=== PATIENT | male | born 1955 | race Caucasian/White ===

== ENCOUNTER 2017-06-26 09:41 | Day surgery (SDC) | payer BC, OTHER ==
[2017-06-24 14:58] VITALS: BMI 32.5
[~2017-06-26 09:41] MED LIST: LACTATED RINGERS 1,000 ML IV SCH
[2017-06-26 09:57] VITALS: TEMP 97.9
[2017-06-26] MEDS ORDERED: LIDOCAINE 1% 20 ML VIAL (10MG/ML) FOR IV START INTRADERMA ONE (10:14)
[2017-06-26] MEDS ORDERED: PROPOFOL 10 MG/ML 20 ML VIAL IV ONE (10:46)
[2017-06-26] MEDS ORDERED: LIDOCAINE 1% INJ 10MG/ML (20 ML MDV) ONE (10:46)
[2017-06-26 11:44] VITALS: RESP 18
--- NOTE | 2017-06-26 11:51 | P.PCN ---
Date of Procedure: 06/26/17 Procedure(s) Performed: Procedures: 1. Esophagogastroduodenoscopy and biopsy. 2. Total colonoscopy. Preoperative diagnosis: Chronic reflux and screening for colon neoplasia. Postoperative diagnosis: 1. Sliding hiatal hernia with no obvious esophagitis or strictures. Short segment of Sun's esophagus. Mild antral gastritis. Colon exam essentially within normal limits. Multiple biopsies obtained from the duodenum, antrum and esophagus. Preparation: HalfLytely prep. Sedation: Was provided by anesthesia. Brief clinical history: The patient is a 62-year-old male who is referred for this evaluation because of chronic reflux and for screening for colon neoplasia. His last colonoscopy was around 10 or 11 years ago. The patient has chronic reflux and has been on PPI for the last year or so but was on antacids and other [id number] medications for years before that. No dysphagia or other alarm symptoms. No and anemia. This evaluation is to assess for, complicated reflux disease, neoplasia or other pathology. Procedure: With the patient on his left lateral decubitus position and after informed consent and adequate sedation, I passed the Olympus-GIF 160 video upper endoscope through the cricopharyngeus down the esophagus. GE junction was around 40 cm from the incisors and there was a small sliding hiatal hernia. The esophagus did not show any obvious erosions, ulcers or strictures. There was a short segment of Sun's esophagus proximal to a small hiatal hernia. The endoscope was then passed into the stomach which was insufflated with air and inspected in detail including the retroflex view in the cardia. There was some mottling and erythema in the antrum but no ulcers or erosions. Pyloric channel, duodenal bulb, post bulbar area and descending duodenum appeared within normal limits. I obtained biopsies from the duodenum, antrum and esophagus as well as from the Sun's segment then the endoscope was withdrawn and I proceeded to do colonoscopy. Perianal area did not show any fissures or fistulas. There were no masses felt on digital rectal examination. The Olympus CFQ 160L video colonoscope was then inserted in the rectum in the usual fashion and advanced to the cecum. The mucosa appeared healthy. No polyps or tumors were seen. I retroflexed the endoscope in the rectum before the endoscope was withdrawn. The patient tolerated the procedure well. Plan: The patient was reassured. Will await biopsy results. Discussed dietary measures. He will follow up with you as planned and I will plan to repeat his upper endoscopy in 2-3 years. Screening colonoscopy in 10 years.
[2017-06-26 12:01] VITALS: BP 121/78; PULSE 57
== END 2017-06-26 12:43 | disposition home or self-care (01) ==
LOC: ORWHC2ENDO 09:41
DX: Z12.11 Encounter for screening for malignant neoplasm of colon (principal); K29.50 Unspecified chronic gastritis without bleeding; K21.0 Gastro-esophageal reflux disease with esophagitis; K22.70 Barrett's esophagus without dysplasia; K44.9 Diaphragmatic hernia without obstruction or gangrene; I10 Essential (primary) hypertension; Z79.82 Long term (current) use of aspirin; Z79.899 Other long term (current) drug therapy
CPT/HCPCS: 88305; 88342; 43239; J2001; J2704; G0121

== ENCOUNTER → 2024-08-03 | Outpatient (CLI) | payer MEDICARE, OTHER ==
--- NOTE | 2024-08-11 05:43 | MR ---
EXAMINATION TYPE: MR knee LT wo con DATE OF EXAM: 08/03/2024 COMPARISON: Outside left knee x-rays July 30, 2024 HISTORY: Left knee pain for 2 weeks due to turning to walk down baker, history of meniscus surgery. TECHNIQUE: Multiplanar, multisequence images of the knee is performed without IV contrast. FINDINGS: MEDIAL MENISCUS: Obliquely oriented signal posterior horn extends to the inferior articular surface. LATERAL MENISCUS: Increased of horizontal signal in the anterior and posterior horns. Abnormal signal posterior horn extends into the central body and likely abuts the articular surface. CRUCIATE LIGAMENTS: The anterior and posterior cruciate ligaments are intact. Increased signal in the anterior cruciate ligament is present. COLLATERAL LIGAMENTS: The medial collateral ligament and lateral collateral ligament complex are inta ct. Mildly increased signal involving deep fibers of the medial collateral ligament. Some adjacent fl uid at level of the lateral collateral ligament complex EXTENSOR MECHANISM: Visualized quadriceps and patellar tendons are intact. Some increased signal dist al quadriceps tendon and more prominently involving the proximal patellar tendon. EFFUSION: Large size suprapatellar joint effusion. POPLITEAL CYST: Lobulated septated moderate-sized popliteal/mccrary cyst measuring 6.1 cm long axis sag ittal image 28 with ill-defined fluid extending inferiorly. TRICOMPARTMENT SPACES: Moderate to severe narrowing and spurring patellofemoral and medial tibiofemor al compartments. Moderate to severe spurring lateral tibial femoral compartment with moderate narrowi ng. CARTILAGE: Chondromalacia patella with areas of full-thickness cartilaginous loss along the posterior patellar pole. Significant cartilaginous loss medial tibiofemoral compartment with areas of full-thi ckness loss noted. BONE MARROW SIGNAL: Areas of heterogeneous increased T2 signal in the posterior patellar pole are pre sent. Heterogeneous areas of diminished T1 and increased T2 signal in the distal femur and proximal t ibia and greatest involving the medial tibiofemoral compartment. OTHER: No additional significant abnormality is appreciated. IMPRESSION: 1. Fairly advanced degenerative changes in the left knee are present as detailed above. 2. Large-size suprapatellar joint effusion. 3. Moderate-size leaking septated popliteal cyst. 4. Oblique full-thickness tear posterior horn of medial meniscus. 5. At least intrasubstance suspected full-thickness tear posterior horn lateral meniscus. 6. Intrasubstance tear anterior horn lateral meniscus. 7. Partial tearing of the ACL. 8. Tendinosis of the MCL. 9. Tendinosis of the distal quadriceps tendon and proximal articulation of the patellar tendon. 10. Mild LCL sprain injury. [facility], , 08/11/2024 5:41 AM
== END | disposition home or self-care (01) ==
LOC: RADMRIMAIN 20:15
PROVIDERS: ATTEND Orthopaedic Surgery
DX: S83.242A Other tear of medial meniscus, current injury, left knee, initial encounter (principal); S83.282A Other tear of lateral meniscus, current injury, left knee, initial encounter; M17.12 Unilateral primary osteoarthritis, left knee; M71.22 Synovial cyst of popliteal space [Baker], left knee; M22.42 Chondromalacia patellae, left knee; X58.XXXA Exposure to other specified factors, initial encounter

== ENCOUNTER 2024-12-23 08:27 | Day surgery (SDC) | payer MEDICARE, OTHER ==
[2024-12-21 09:31] VITALS: BMI 34.3
--- NOTE | 2024-12-22 23:15 | HP ---
HISTORY AND PHYSICAL DATE OF SURGERY: 12/23/2024. HISTORY OF PRESENT ILLNESS: Matt Barron is a 69-year-old gentleman seen with progressive left knee pain. We discussed options regarding treatment. He elected to proceed with left knee arthroscopy. Consent was obtained. PAST MEDICAL HISTORY: Hypertension, atrial fibrillation, gastroesophageal reflux disease. SURGICAL HISTORY: Ablation. DAILY MEDICATIONS: 1. Amlodipine. 2. Lisinopril. 3. Omeprazole. 4. Xarelto. ALLERGIES: None. SOCIAL HISTORY: Denies tobacco use. PHYSICAL EVALUATION OF THE LEFT KNEE: His range of motion is -2 to 125 degrees. He has a moderate effusion. He is tender along the medial and lateral joint lines. Positive medial and lateral Felipa's. Ligaments stable. Hip rotation without pain. Distal neurovascular exam intact. IMAGING STUDIES: Left knee radiographs revealed moderate osteoarthritis. Left knee MRI revealed medial and lateral meniscal tears. Large effusion, Reynoso cyst, osteoarthritis. IMPRESSION: 1. Internal derangement of left knee with medial and lateral meniscal tears. 2. Left knee osteoarthritis. 3. Atrial fibrillation. 4. Hypertension. PLAN: Left knee arthroscopy with partial medial/lateral meniscectomy and debridement. MMODL / IJN: [id number] /
[2024-12-23 09:02] VITALS: RESP 16
[2024-12-23] MEDS: IV FLUID CONTINUATION 1,000 ML IV ONE (09:02)
[2024-12-23] MEDS: LACTATED RINGERS 1,000 ML IV SCH (09:02)
[2024-12-23] MEDS: ONDANSETRON 4 MG/2 ML VIAL IVP ONE (09:09)
[2024-12-23] MEDS: DEXAMETHASONE SOD PHOSPHATE 4 MG/ML 1 ML VIAL IV ONE (09:09)
[2024-12-23] MEDS: BUPIVACAINE (PF) 0.25% 30 ML VIAL SQ ONE ×2 (09:37→10:13)
[2024-12-23] MEDS ORDERED: SUCCINYLCHOLINE CHLORIDE 200 MG/10 ML VIAL IV ONE (09:41)
[2024-12-23] MEDS ORDERED: PROPOFOL 10 MG/ML 20 ML VIAL IV ONE (09:41)
[2024-12-23] MEDS ORDERED: LIDOCAINE 1% INJ 10MG/ML (20 ML MDV) ONE (09:41)
[2024-12-23] MEDS ORDERED: MIDAZOLAM 2 MG/2 ML VIAL ONE (09:41)
[2024-12-23] MEDS ORDERED: KETOROLAC 15 MG/ML 1 ML VIAL ONE (09:41)
[2024-12-23] MEDS ORDERED: fentaNYL (PF) 50 MCG/ML 2 ML AMP ONE (09:41)
[2024-12-23] MEDS: ceFAZolin 3 GM in SODIUM CHLORIDE 0.9% 100 ML IVPB PRN (09:43)
--- NOTE | 2024-12-23 10:31 | P.OP ---
Date of Procedure: 12/23/24 Preoperative Diagnosis: Internal derangement left knee Postoperative Diagnosis: 1. Tear medial and lateral meniscus left knee 2. Grade IV chondromalacia medial femoral condyle left knee 3. Reactive synovitis medial, lateral and suprapatellar compartments left knee 4. 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 Grade III chondromalacia lateral femoral condyle left knee Procedure(s) Performed: 1. Arthroscopic partial medial and lateral meniscectomy left knee 2. Arthroscopic microfracture medial femoral condyle left knee 3. Arthroscopic partial synovectomy medial, lateral and suprapatellar compartments left knee 4. Arthroscopic chondroplasty patella left knee Anesthesia: JETA, local Surgeon: Andre Sheridan Estimated Blood Loss (ml): 5 Pathology: none sent Condition: stable Disposition: PACU Indications for Procedure: 69-year-old patient seen with progressive left knee pain. After having treatment options discussed, he elected to proceed with arthroscopy. Operative Findings: See description of procedure Description of Procedure: Patient was taken to the operative suite. Patient underwent a general anesthetic by the department of anesthesia. Patient was given preoperative antibiotics. The left lower extremity was placed in a well-padded arthroscopic leg fitzpatrick. The left leg was prepped and draped in the normal sterile orthopedic fashion. A lateral parapatellar and suprapatellar incision was made. Trochars were inserted. Arthroscopy was initiated. Suprapatellar pouch revealed diffuse thick reactive synovitis. The patellofemoral joint appeared to articulate congruently. There was grade III chondromalacia of the patella and the femoral sulcus with some osteochondral flap tears present. The scope was guided into the medial gutter. No loose bodies or plica were identified the scope was then guided into the medial compartment. A medial parapatellar incision was made. Trocar inserted followed by probe. There was a complex tear involving the posterior margin mid body medial meniscus. There were grade III/IV chondromalacia changes medial femoral condyle and grade 4, change of the tibial plateau with a fairly large area of exposed bone. There was thick reac tive synovitis anteriorly. I performed a partial medial meniscectomy getting down to stable meniscal tissue. I performed a chondroplasty of the medial femoral condyle getting down to stable osteochondral tissue. I performed a partial synovectomy decompressing the reactive synovitis anteriorly. I did note an area of grade IV chondromalacia involving the weightbearing surface of the medial femoral condyle. I introduced a microfracture awl and I performed a microfracture to the area of exposed medial femoral condyle penetrating the bone with resultant bleeding at the microfracture site. The residual meniscus was now probed and was found to be stable. The residual osteochondral surface was stable. There was good decompression of the synovitis. Scope and probe were then guided into the intercondylar notch. Cruciates were identified, probed and found to be stable. The scope and probe were then guided into lateral compartment. There was a complex tear involving the posterior horn lateral meniscus. There were grade III chondromalacia changes involving the lateral femoral condyle with no osteochondral tears present. There was some thick reactive synovitis anteriorly. I performed a partial lateral meniscectomy getting down to stable meniscal tissue. I performed a partial synovectomy decompressing that reactive synovitis. The residual meniscus was stable. There was good decompression of the synovitis. The scope was in guided back into the suprapatellar compartment. I introduced a motorized shaver into the suprapatellar compartment. I debrided some piecemeal fragments of meniscus that I encountered. I performed a chondroplasty of the patella and femoral sulcus getting down to stable osteochondral tissue. I performed a partial synovectomy. There was good decompression of the synovitis. The residual osteochondral surface of the patella and femoral sulcus appeared stable with again grade 3 approaching grade IV chondromalacia. I took 1 more look around the entire knee, no residual debris. Instruments were now removed from the joint. The joint was infiltrated with .25% Marcaine. Steri-Strips were applied to the portal sites. Sterile dressings were applied. The patient was placed into a VENKAT hose. No tourniquet was utilized. The patient was awakened, transferred to a bed and taken to recovery stable satisfactory condition.
[2024-12-23] MEDS: HYDROmorphone 0.5 MG/0.5 ML SYRINGE IVP PRN (10:38)
[2024-12-23 10:48] VITALS: TEMP 97.1
[2024-12-23 11:26] VITALS: BP 131/85; PULSE 70
== END 2024-12-23 11:46 | disposition home or self-care (01) ==
LOC: OR 08:27
PROVIDERS: ATTEND Orthopaedic Surgery
DX: S83.282A Other tear of lateral meniscus, current injury, left knee, initial encounter (principal); S83.242A Other tear of medial meniscus, current injury, left knee, initial encounter; M65.962 Unspecified synovitis and tenosynovitis, left lower leg; M94.262 Chondromalacia, left knee; M17.12 Unilateral primary osteoarthritis, left knee; I48.91 Unspecified atrial fibrillation; I10 Essential (primary) hypertension; Z79.01 Long term (current) use of anticoagulants
CPT/HCPCS: 29879; 29880; J2250; J0330; J1100; J0690; J2405; J2003; J3010; J1885; J2704; J1171; J0665